=== PATIENT | male | born 1985 | race Caucasian/White ===

== ENCOUNTER 2021-02-09 16:05 | Inpatient (IN) ==
[2021-02-09] MEDS ORDERED: Isovue-370 500 ML BOTTLE IVP ONE (17:00)
[2021-02-09] MEDS ORDERED: 0.9 % Sodium Chloride 1,000 ML IVC ONE (17:00)
[2021-02-09] MEDS ORDERED: MetroNIDAZOLE 500 MG/100 ML 500 MG/100 ML BAG IVPB ONE (17:01)
[2021-02-09 17:52] LABS: Basophils # 0.2 K/mcL (0.0-0.2); Basophils % 1.3 %; Eosinophils % 8.2 %; Hematocrit 39.1 % (37.5-50.1); Hemoglobin 12.9 g/dL (12.9-16.9); Lymphocytes # 2.1 K/mcL (0.6-4.6); Lymphocytes % 17.3 %; Mean Corpuscular Hemoglobin 32.1 pg (28.0-33.3); Mean Corpuscular Volume 97.3 fL (83.0-100.0); Mean Platelet Volume 11.5 fL (9.4-12.4); Monocytes # 1.3 K/mcL (0.0-1.3); Monocytes % 10.6 %; Neutrophils # 7.3 K/mcL (1.6-8.9); Platelet Count 201 K/mcL (140-400); Red Blood Count 4.02 M/mcL (4.19-5.50); Red Cell Distribution Width 11.1 % (11.5-14.5); Segmented Neutrophils % 61.6 %; White Blood Count 11.9 K/mcL (4.3-11.1)
[2021-02-09 17:54] LABS: Platelet Estimate Normal (Normal)
[2021-02-09 18:45] LABS: BUN/Creatinine Ratio 13 (6-26); Blood Urea Nitrogen 12 mg/dL (6-20); Calcium 9.5 mg/dL (8.6-10.3); Carbon Dioxide 22 mEq/L (23-29); Chloride 103 mEq/L (98-107); Glucose 90 mg/dL (70-105); Osmolality,Calculated 283 (280-300); Potassium 3.6 mEq/L (3.5-5.1); Sodium 137 mEq/L (136-145); eGFR For African Americans > 60 (> 60); eGFR For Non-African Americans > 60 (> 60)
[2021-02-09] MEDS ORDERED: Ondansetron 4 MG/2 ML VIAL IVP PRN (20:58)
[2021-02-09] MEDS ORDERED: Naloxone 0.4 MG/ML INJ IVP PRN (20:58)
[2021-02-09] MEDS ORDERED: Acetaminophen 325 MG TABLET PO PRN (20:58)
[2021-02-09] MEDS: 0.9 % Sodium Chloride 1,000 ML IVC SCH (22:28)
[2021-02-09 23:25] LABS: Bilirubin,Urine Negative (Negative); Blood,Urine Negative (Negative); Clarity,Urine Clear (Clear); Color,Urine Light-Yellow (Yellow); Glucose,Urine (UA) Normal (Normal); Ketones,Urine Negative (Negative); Leukocyte Esterase,Urine Negative (Negative); Nitrite,Urine Negative (Negative); PH,Urine 6.5 pH Units (5.0-8.0); Protein,Urine Negative (Neg-Trace); Urobilinogen,Urine Normal (Normal)
[2021-02-10] MEDS ORDERED: MetroNIDAZOLE 500 MG/100 ML 500 MG/100 ML BAG IVPB SCH
[2021-02-10] MEDS: MetroNIDAZOLE 500 MG/100 ML 500 MG/100 ML BAG IVPB SCH ×4 (00:12→23:11)
[2021-02-10] MEDS: traZODone 50 MG TABLET PO SCH ×2 (01:27→10:27)
[2021-02-10 01:31] LABS: Basophils # 0.2 K/mcL (0.0-0.2); Basophils % 1.4 %; Eosinophils % 8.5 %; Hemoglobin 12.8 g/dL (12.9-16.9); Immature Granulocytes % 0.8 % (0-4); Lymphocytes # 2.3 K/mcL (0.6-4.6); Lymphocytes % 19.3 %; Mean Corpuscular HGB Conc 33.7 g/dL (31.6-35.5); Mean Corpuscular Hemoglobin 32.7 pg (28.0-33.3); Mean Corpuscular Volume 97.2 fL (83.0-100.0); Mean Platelet Volume 10.8 fL (9.4-12.4); Monocytes # 1.2 K/mcL (0.0-1.3); Monocytes % 10.3 %; Neutrophils # 7.1 K/mcL (1.6-8.9); Platelet Count 269 K/mcL (140-400); Red Blood Count 3.91 M/mcL (4.19-5.50); Red Cell Distribution Width 11.1 % (11.5-14.5); Segmented Neutrophils % 59.7 %; White Blood Count 11.9 K/mcL (4.3-11.1)
[2021-02-10 01:37] LABS: INR 1.1; Prothrombin Time 11.9 Seconds (9.4-12.1)
[2021-02-10 01:50] LABS: Alanine Aminotransferase 38 Units/L (7-52); Albumin 3.9 g/dL (3.5-5.7); Albumin/Globulin Ratio 1.3 (1.1-2.2); Alkaline Phosphatase 53 Units/L (34-104); Aspartate Amino Transferase 21 Units/L (13-39); BUN/Creatinine Ratio 10 (6-26); Bilirubin,Direct 0.1 mg/dL (0.0-0.2); Bilirubin,Indirect 0.3 mg/dL (0.0-1.0); Bilirubin,Total 0.4 mg/dL (0.3-1.0); Blood Urea Nitrogen 8 mg/dL (6-20); C-Reactive Protein 37 mg/L (Less than 10); Calcium 9.2 mg/dL (8.6-10.3); Carbon Dioxide 25 mEq/L (23-29); Chloride 103 mEq/L (98-107); Glucose 100 mg/dL (70-105); Magnesium 1.8 mg/dL (1.6-2.6); Osmolality,Calculated 282 (280-300); Potassium 3.3 mEq/L (3.5-5.1); Sodium 137 mEq/L (136-145); Total Protein 6.9 g/dL (6.4-8.9); eGFR For African Americans > 60 (> 60); eGFR For Non-African Americans > 60 (> 60)
[2021-02-10] MEDS: 0.9 % Sodium Chloride 1,000 ML IVC SCH (05:30)
[2021-02-10] MEDS: Folic Acid 1 MG TABLET PO SCH (10:27)
[2021-02-10] MEDS: Thiamine (B-1) 100 MG TABLET PO SCH (10:27)
[2021-02-10] MEDS ORDERED: *HR* HYDROmorphone PF 0.5 MG/0.5 ML SYRINGE IVP PRN (13:49)
[2021-02-10] MEDS ORDERED: *HR* FentaNYL (PF) 100 MCG/2 ML VIAL IVP PRN (13:49)
[2021-02-10] MEDS ORDERED: Lidocaine -MPF 2% 5 ML VIAL ONE (14:38)
[2021-02-10] MEDS ORDERED: *HR* Rocuronium Bromide 50 MG/5 ML VIAL ONE (14:38)
[2021-02-10] MEDS ORDERED: *HR* Propofol 200 MG/20 ML VIAL IVP ONE ×2 (14:38→17:21)
[2021-02-10] MEDS ORDERED: *HR* Midazolam HCl 2 MG/2 ML VIAL ONE (14:38)
[2021-02-10] MEDS ORDERED: Ondansetron 4 MG/2 ML VIAL ONE (14:38)
[2021-02-10] MEDS ORDERED: *HR* FentaNYL (PF) 100 MCG/2 ML VIAL ONE (14:38)
[2021-02-10] MEDS ORDERED: Lidocaine HCL 4 ML Topical Solution (Laryng-O-Jet Kit Sterile Pak) TP ONE (14:38)
[2021-02-10] MEDS ORDERED: Ketorolac 30 MG/ML VIAL ONE (17:40)
[2021-02-10] MEDS ORDERED: Sugammadex Sodium 200 MG/2 ML VIAL IV ONE (17:49)
[2021-02-10] MEDS ORDERED: *HR* HYDROMORPHONE 2 MG/ML VIAL ONE (17:54)
[2021-02-10] MEDS: Nicotine 21 MG PATCH.TD24 TD SCH (19:49)
[2021-02-10] MEDS ORDERED: *HR* HYDROcodone/Acet 7.5/325 mg TABLET PO ONE (20:36)
[2021-02-11] MEDS: traZODone 50 MG TABLET PO SCH ×2 (00:18→09:06)
[2021-02-11] MEDS ORDERED: Melatonin 3 MG TABLET PO ONE (00:24)
[2021-02-11 01:17] LABS: Basophils # 0.1 K/mcL (0.0-0.2); Eosinophils # 0.2 K/mcL (0.0-0.6); Eosinophils % 1.6 %; Hematocrit 42.2 % (37.5-50.1); Hemoglobin 13.3 g/dL (12.9-16.9); Immature Granulocytes % 0.7 % (0-4); Lymphocytes # 1.4 K/mcL (0.6-4.6); Lymphocytes % 10.1 %; Mean Corpuscular HGB Conc 31.5 g/dL (31.6-35.5); Mean Corpuscular Hemoglobin 32.4 pg (28.0-33.3); Mean Corpuscular Volume 102.9 fL (83.0-100.0); Mean Platelet Volume 10.7 fL (9.4-12.4); Monocytes # 0.6 K/mcL (0.0-1.3); Monocytes % 4.4 %; Platelet Count 284 K/mcL (140-400); Red Cell Distribution Width 10.9 % (11.5-14.5); Segmented Neutrophils % 82.2 %; White Blood Count 13.4 K/mcL (4.3-11.1)
[2021-02-11 01:41] LABS: Alanine Aminotransferase 31 Units/L (7-52); Albumin 3.9 g/dL (3.5-5.7); Albumin/Globulin Ratio 1.3 (1.1-2.2); Alkaline Phosphatase 51 Units/L (34-104); Aspartate Amino Transferase 19 Units/L (13-39); BUN/Creatinine Ratio 12 (6-26); Bilirubin,Total 0.3 mg/dL (0.3-1.0); Blood Urea Nitrogen 10 mg/dL (6-20); Calcium 9.1 mg/dL (8.6-10.3); Carbon Dioxide 24 mEq/L (23-29); Chloride 105 mEq/L (98-107); Globulin 3.1 g/dL (2.4-3.5); Glucose 146 mg/dL (70-105); Osmolality,Calculated 284 (280-300); Potassium 4.2 mEq/L (3.5-5.1); Sodium 136 mEq/L (136-145); eGFR For African Americans > 60 (> 60); eGFR For Non-African Americans > 60 (> 60)
[2021-02-11] MEDS ORDERED: *HR* OxyCODONE Immed Rel 5 MG TABLET PO ONE ×2 (02:09→09:23)
[2021-02-11 06:52] VITALS: O2SAT 98
[2021-02-11] MEDS: Folic Acid 1 MG TABLET PO SCH (09:05)
[2021-02-11] MEDS: Thiamine (B-1) 100 MG TABLET PO SCH (09:05)
[2021-02-11] MEDS: Nicotine 21 MG PATCH.TD24 TD SCH (09:05)
[2021-02-11] MEDS: MetroNIDAZOLE 500 MG/100 ML 500 MG/100 ML BAG IVPB SCH (09:17)
[2021-02-11] MEDS ORDERED: Ibuprofen 400 MG TABLET PO ONE (09:23)
[2021-02-11 10:40] VITALS: BP 124/67; PULSE 63; TEMP 97.7
== END 2021-02-11 14:40 | disposition home or self-care (01) | DRG 346 ==
LOC: 3BNU 16:05 → EMEROOARM 16:05 → 3BNU 22:00 → SUATTDRO 02-10 14:29
PROVIDERS: ADMIT Student in an Organized Health Care Education/Training Program; ATTEND Student in an Organized Health Care Education/Training Program